=== PATIENT | male | born 1985 | race American Indian/Alaskan Native ===

== ENCOUNTER 2016-07-12 19:14 | Emergency (ER) | payer BC, MEDICAID, OTHER ==
[2016-07-12 19:15] VITALS: BMI 27.8
[2016-07-12 19:31] VITALS: O2SAT 98
[2016-07-12] MEDS ORDERED: Naproxen 550 mg Tab PO STA (20:08)
[2016-07-12] MEDS ORDERED: Naproxen 550 mg Tab PO ONE (20:22)
--- NOTE | 2016-07-12 20:42 | C.PDOC ---
History Of Present Illness 30 year old male presents to the ER with a complaint of feeling numbness and tingling to his left hand and forearm that began earlier today. Patient reports having occasional symptoms before but notes they were brief. Patient admits to occasional marijuana use and admits using today, denies other drug use. Patient also reports having HIV and is complaint with OLIVARES medication, viral load is undetectable. Patient denies headache, visUAL changes, facial droop, slurring speech, extremity weakness, gait changes, chest pain, SOB, palpitations. Time Seen by Provider: 07/12/16 19:38 Chief Complaint (Nursing): Finger,Hand,&Wrist History Per: Patient History/Exam Limitations: no limitations Onset/Duration Of Symptoms: Hrs Current Symptoms Are (Timing): Still Present Quality: Other (Numbness/tingling) Severity: Mild Exacerbating Factor(s): Nothing Past Medical History Reviewed: Historical Data, Nursing Documentation, Vital Signs Vital Signs: Last Vital Signs Temp 97.8 F 07/12/16 20:55 Pulse 72 07/12/16 20:55 Resp 18 07/12/16 20:55 BP 132/87 07/12/16 20:55 Pulse Ox 98 07/12/16 21:31 - Medical History PMH: Asthma, HIV Surgical History: Cholecystectomy - [facility] Procedures APPLICATION OF SPLINT (10/28/04) INJECT/INFUSE NEC (02/04/13) INTERVIEW & EVALUAT NEC (08/17/05) OTHER SKIN & SUBQ I D (02/22/14) SPINAL TAP (08/10/99) Family History: States: No Known Family Hx - Social History Hx Tobacco Use: Yes (0.25 ppd marijuana 3 daily) Hx Alcohol Use: Yes Hx Substance Use: Yes - Immunization History Hx Tetanus Toxoid Vaccination: No Hx Influenza Vaccination: Yes Hx Pneumococcal Vaccination: No Review Of Systems Except As Marked, All Systems Reviewed And Found Negative. Constitutional: Negative for: Fever, Chills Cardiovascular: Negative for: Chest Pain, Palpitations Respiratory: Negative for: Cough, Shortness of Breath Gastrointestinal: Negative for: Nausea, Vomiting, Abdominal Pain, Diarrhea Neurological: Positive for: Numbness, Other (Tingling) Physical Exam - Physical Exam Appears: Well, Non-toxic, Other (Anxious) Skin: Normal Color, Warm, Dry, No Rash Head: Atraumatic, Normacephalic Eye(s): bilateral: Normal Inspection, PERRL, EOMI Ear(s): Bilateral: Normal Oral Mucosa: Moist Neck: Normal, Normal ROM, No Midline Cervical Tenderness, No Paracervical Tenderness, No Step Off Deformity, Supple Chest: Symmetrical Cardiovascular: Rhythm Regular Respiratory: Normal Breath Sounds, No Rales, No Rhonchi, No Wheezing Gastrointestinal/Abdominal: Normal Exam, Bowel Sounds, Soft, No Tenderness Extremity: Normal ROM (Arms, forearms, hands bilaterally), No Tenderness (Arms, forearms, hands bilaterally), Capillary Refill (< 2 sec all digits ), No Deformity, No Swelling Extremity: Bilateral: Atraumatic (Arms, forearms, hands), Normal Color And Temperature, Normal ROM Pulses: Left Radial: Normal, Right Radial: Normal Neurological/Psych: Oriented x3, Normal Speech, Normal Cognition, Normal Cranial Nerves, No Cerebellar Signs, Normal Motor, Normal Sensation, Normal Reflexes Gait: Steady ED Course And Treatment ECG: Interpreted By Me, Viewed By Me (NSR 76 bpm, right axis deviation, no acute ST/T wave changes) ECG Interpretation: Normal Rate From EC O2 Sat by Pulse Oximetry: 98 (Room air) Pulse Ox Interpretation: Normal Progress Note: EKG and accucheck ordered and reviewed. Patient given PO Naprosyn and Flexeril. Reevaluation Time: 20:50 Reassessment Condition: Improved (On reassessment, patient is resting comfortably, states his symptoms have improved and he feels better. EKG and accucheck WNL. Patient given rxs for Naprosyn and Flexeril, and was instructed to follow up with PMD/clinic in 1-2 days. He understands he should return to ED if symptoms worsen.) Disposition Counseled Patient/Family Regarding: Studies Performed, Diagnosis, Need For Followup, Rx Given - Disposition Referrals: [facility] [Outside] [facility] [Outside] Disposition: HOME/ ROUTINE Disposition Time: 20:50 Condition: STABLE Additional Instructions: FOLLOW UP WITH YOUR DOCTOR/CLINIC IN 1-2 DAYS USE MEDICATIONS NEEDED EAT REGULARLY, AND DRINK PLENTY OF FLUIDS RETURN TO ER IF SYMPTOMS WORSEN Prescriptions: Cyclobenzaprine [Cyclobenzaprine HCl] 10 mg PO BID PRN #12 tab PRN Reason: pain/muscle Naproxen [Naprosyn Tab] 375 mg PO BID PRN #15 tab PRN Reason: pain Instructions: Paresthesia (ED) Forms: General Discharge Instructions Print Language: PORTUGUESE - POA Present On Arrival: None - Clinical Impression Clinical Impression: Arm paresthesia, left - Scribe Statement The provider has reviewed the documentation as recorded by the Scriban Ellis All medical record entries made by the Keviniban were at my direction and personally dictated by me. I have reviewed the chart and agree that the record accurately reflects my personal performance of the history, physical exam, medical decision making, and the department course for this patient. I have also personally directed, reviewed, and agree with the discharge instructions and disposition.
[2016-07-12 20:57] VITALS: BP 132/87; PULSE 72; RESP 18; TEMP 97.8
--- NOTE | 2016-07-19 13:36 | CARD ---
APPROVED REPORT EKG Measurement Heart [id number] CT [id number] <Conclusion> Normal sinus rhythm Rightward axis Borderline ECG
== END 2016-07-12 20:56 | disposition home or self-care (01) ==
LOC: C.ER 19:14
DX: R20.2 Paresthesia of skin (principal)